=== PATIENT | male | born 1960 | race Caucasian/White ===

== ENCOUNTER 2019-02-20 08:09 | Outpatient (CLI) | payer MEDICARE ==
--- NOTE | 2019-02-20 09:12 | SJPRAD ---
FHAND 3 VIEWS ROUTINE LT History: [Arthritis] Comparison: None. Findings: Severe degenerative changes at the thumb carpometacarpal joint with large erosions and oste ophyte formation. 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 No acute fracture or malalignment. Impression: Severe degenerative changes of the thumb carpometacarpal joint.
--- NOTE | 2019-02-20 09:13 | SJPRAD ---
FHAND 3 VIEWS ROUTINE RT History: [Arthritis] Comparison: None. Findings: Advanced degenerative changes of the third metacarpal phalangeal joint with narrowing and o steophyte formation. Old fracture of the fifth metacarpal. Mild degenerative changes of the thumb carpometacarpal joint. 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 Impression: Degenerative changes and chronic findings. No evidence for inflammatory arthropathy.
[2019-02-20 16:19] LABS: #Basophils 0.1 thou/uL (0.0-0.2); #Eosinphils 0.4 thou/uL (0.0-0.7); #Lymphocytes 2.8 thou/uL (1.20-3.40); #Monocytes 0.7 thou/uL (0.11-0.59); #Neutrophils 4.1 thou/uL (1.40-6.50); %Basophils 1.3 % (0.0-1.0); %Lymphocytes 34.8 % (21.0-51.0); %Monocytes 8.1 % (0.0-10.0); %Neutrophils 50.8 % (42.0-75.0); Hemoglobin 16.1 g/dL (14.0-18.0); Mean Corpuscular HGB CONC 32.4 g/dL (32.0-36.0); Mean Corpuscular Hemoglobin 30.2 pg (27.0-31.0); Mean Corpuscular Volume 93.1 fL (78.0-98.0); Mean Platelet Volume 6.7 fL (7.4-10.4); Platelet Count 425 thou/uL (130-400); RBC Distribution Width 12.6 % (11.5-14.5); Red Blood Cell (RBC) Count 5.35 mill/uL (4.70-6.10); White Blood Cell (WBC) Count 8.1 thou/uL (4.8-10.8)
[2019-02-20 17:31] LABS: ALT (SGPT) 28 U/L (8-55); AST (SGOT) 25 U/L (5-34); Albumin 4.3 g/dL (3.5-5.0); Alkaline Phosphatase 80 U/L (40-150); Anion Gap 13 mmol/L (10-20); BUN (Urea Nitrogen) 12 mg/dL (8.4-25.7); Bilirubin, Total 0.5 mg/dL (0.2-1.2); Calc. Creatinine Clearance 0 mL/min (70-130); Calcium 10.5 mg/dL (7.8-10.44); Carbon Dioxide 30 mmol/L (22-29); Cardiac Risk 2.2 (Less than 4.5); Chloride 103 mmol/L (98-107); Cholesterol 205 mg/dl (< 200 Desired); Estimated GFR-MDRD 80; Globulin 3.3 g/dL (2.4-3.5); Glucose 109 mg/dL (70-105); HDL Cholesterol 92 mg/dL (>60 Neg Risk); LDL Cholesterol, Calculated 104 mg/dL; Potassium 4.6 mmol/L (3.5-5.1); Protein, Total 7.6 g/dL (6.0-8.3); Sodium 141 mmol/L (136-145); Triglycerides 44 mg/dL (Less than 150); Uric Acid 6.8 mg/dL (3.5-7.2)
[2019-02-20 17:44] LABS: Thyroid Stimulating Hormone 0.9936 uIU/mL (0.35-4.94); Vitamin D, 25 Hydroxy 26.9 ng/ml (> 30.0)
[2019-02-22 15:36] LABS: ANA Symphony (Qualitative) Negative (Negative); ANA Symphony (Quantitative) 0.1 Ratio (< 0.7 Negative); CCP IgG Antibody 1.2 EliAU/mL (<7 Negative); EliA RAS New Method **** NEW METHOD ****; Rheumatoid Factor IgA Antibody 3.9 IU/mL (<14 Negative); Rheumatoid Factor IgM Antibody 1.6 IU/mL (<3.5 Negative); dsDNA IgG Antibody 5.8 IU/mL (<10 Negative)
== END 2019-02-20 08:10 | disposition home or self-care (01) ==
LOC: MWLC RAD 08:09
PROVIDERS: ATTEND Internal Medicine Geriatric Medicine
DX: M19.041 Primary osteoarthritis, right hand (principal); M19.042 Primary osteoarthritis, left hand; M18.12 Unilateral primary osteoarthritis of first carpometacarpal joint, left hand
CPT/HCPCS: 80053; 80061; 82306; 82607; 83520; 84443; 84550; 85025; 86038; 86200; 86225

== ENCOUNTER 2022-11-26 19:17 | Inpatient (IN) | payer MEDICARE ==
[2022-11-26] MEDS ORDERED: Aspirin Chewable 81 MG TAB ONE (19:52)
[2022-11-26] MEDS ORDERED: Nitroglycerin 0.4 MG TAB 1 EACH ONE (19:52)
[2022-11-26] MEDS ORDERED: Ondansetron ODT 4 MG TAB ONE (19:52)
[2022-11-26] MEDS ORDERED: Mag-Al 1200 mg/1200 mg/30 ML UDCUP ONE (19:52)
[2022-11-26 20:35] LABS: #Basophils 0.1 thou/uL (0.0-0.2); #Eosinphils 0.3 thou/uL (0.0-0.7); #Lymphocytes 3.2 thou/uL (1.20-3.40); #Monocytes 0.8 thou/uL (0.11-0.59); #Neutrophils 5.6 thou/uL (1.40-6.50); %Eosinophils 2.6 % (0.0-10.0); %Monocytes 8.4 % (0.0-10.0); Hemoglobin 16.4 g/dL (14.0-18.0); Mean Corpuscular HGB CONC 33.2 g/dL (32.0-36.0); Mean Corpuscular Hemoglobin 30.8 pg (27.0-31.0); Mean Platelet Volume 6.4 fL (7.4-10.4); Platelet Count 355 10x3/uL (130-400); RBC Distribution Width 12.6 % (11.5-14.5); Red Blood Cell (RBC) Count 5.31 mill/uL (4.70-6.10); White Blood Cell (WBC) Count 9.9 10x3/uL (4.8-10.8)
[2022-11-26 21:02] LABS: ALT (SGPT) 35 U/L (8-55); AST (SGOT) 39 U/L (5-34); Albumin 4.7 g/dL (3.5-5.0); Alkaline Phosphatase 97 U/L (40-110); Anion Gap 15 mmol/L (10-20); BUN (Urea Nitrogen) 9 mg/dL (8.4-25.7); Bilirubin, Total 0.4 mg/dL (0.2-1.2); Calc. Creatinine Clearance 0 mL/min (70-130); Calcium 9.7 mg/dL (7.8-10.44); Carbon Dioxide 26 mmol/L (22-29); Chloride 102 mmol/L (98-107); Estimated GFR 101; Globulin 3.8 g/dL (2.4-3.5); Glucose 88 mg/dL (70-105); Lipase 33 U/L (8-78); Potassium 3.5 mmol/L (3.5-5.1); Protein, Total 8.5 g/dL (6.0-8.3); Sodium 139 mmol/L (136-145)
[2022-11-26 21:43] LABS: Acetaminophen Less than 10.0 mcg/mL (10.0-30.0); Alcohol 251 mg/dL (Less than 10); Salicylate Less than 8.0 mg/dL (15.0-30.0)
[2022-11-26 22:13] LABS: Amphetamine Not Detected (NotDetected); Barbiturates Screen Not Detected (NotDetected); Benzodiazepine Screen Not Detected (NotDetected); Cocaine Metabolite Screen Not Detected (NotDetected); Methadone Not Detected (NotDetected); Methamphetamine Not Detected (NotDetected); Opiate Screen Not Detected (NotDetected); Oxycodone Screen Not Detected (NotDetected); Phencyclidine (PCP) Not Detected (NotDetected); THC/Cannabinoid Screen Detected (NotDetected); Tricyclic Screen Not Detected (NotDetected)
[2022-11-26] MEDS ORDERED: Nitroglycerin 0.4 MG TAB (25 Tab Bottle) SL PRN (23:31)
[2022-11-26] MEDS ORDERED: Ondansetron ODT 4 MG TAB PO PRN (23:31)
[2022-11-26] MEDS ORDERED: Acetaminophen 325 MG TAB PO PRN (23:31)
[2022-11-26] MEDS ORDERED: Lorazepam 2 MG/ML VIAL IM PRN (23:31)
[2022-11-26] MEDS ORDERED: Lorazepam 1 MG TAB PO PRN (23:31)
[2022-11-26] MEDS ORDERED: Electrolyte Replacement Protocol 1 EACH FS SCH (23:45)
[2022-11-26 23:46] LABS: Troponin I Less than 0.010 ng/mL (< 0.028)
[2022-11-26] MEDS ORDERED: Multivit, Therapeutic 1 TAB PO SCH (23:59)
[2022-11-26] MEDS ORDERED: Nicotine 21 MG PATCH TD SCH (23:59)
[2022-11-26] MEDS ORDERED: Folic Acid 1 MG TAB PO SCH (23:59)
[2022-11-27 00:24] LABS: Hemoglobin A1c 5.3 % (4.0-6.0)
[2022-11-27] MEDS ORDERED: Folic Acid 1 MG TAB ONE ×2 (00:24→09:54)
[2022-11-27 00:25] LABS: Phosphorus 3.5 mg/dL (2.3-4.7)
[2022-11-27] MEDS ORDERED: Lorazepam 1 MG TAB ONE (00:26)
[2022-11-27] MEDS: Lorazepam 1 MG TAB PO SCH ×5 (00:52→23:48)
[2022-11-27] MEDS: Thiamine HCl 200 MG/2 ML VIAL SLOW IVP SCH ×2 (00:52→23:48)
[2022-11-27 01:02] LABS: HBCM Index 0.41 S/CO (0-0.79); HBSAg Index 0.28 S/CO (0-0.99); HIV (1/2) Antibody/Antigen Non-Reactive (NonReactive); HIV 1/2 INDEX 0.09 S/CO (<1.00); Hep A IgM AB Non-Reactive (NonReactive); Hep A IgM S/CO 0.18 S/CO (0-0.79); Hep B Surf Ag Non-Reactive S/CO (NonReactive); Hepatitis B Core IgM Abs Non-Reactive (NonReactive); Thyroid Stimulating Hormone 0.9822 uIU/mL (0.35-4.94)
[2022-11-27 01:03] LABS: Hep C IgG Ab Reflex HepC Qnt (NonReactive); Hep C Index 14.76 S/CO (0-0.79)
[2022-11-27] MEDS: Lactated Ringer's 1,000 ML IV SCH ×2 (01:16→16:26)
[2022-11-27 01:18] LABS: INR-International Normal Ratio 0.9; PTT 29.5 sec (22.9-36.1); Prothrombin Time 12.9 sec (12.0-14.7)
[2022-11-27 02:52] LABS: Troponin I Less than 0.010 ng/mL (< 0.028)
[2022-11-27 05:38] LABS: #Basophils 0.1 thou/uL (0.0-0.2); #Eosinphils 0.3 thou/uL (0.0-0.7); #Lymphocytes 2.7 thou/uL (1.20-3.40); #Monocytes 0.5 thou/uL (0.11-0.59); #Neutrophils 3.9 thou/uL (1.40-6.50); %Basophils 1.4 % (0.0-1.0); %Eosinophils 3.9 % (0.0-10.0); %Lymphocytes 36.4 % (21.0-51.0); %Monocytes 6.7 % (0.0-10.0); %Neutrophils 51.7 % (42.0-75.0); Hemoglobin 15.9 g/dL (14.0-18.0); Mean Corpuscular HGB CONC 33.5 g/dL (32.0-36.0); Mean Corpuscular Volume 92.4 fl (78.0-98.0); Mean Platelet Volume 6.5 fL (7.4-10.4); Platelet Count 316 10x3/uL (130-400); RBC Distribution Width 12.7 % (11.5-14.5); Red Blood Cell (RBC) Count 5.13 mill/uL (4.70-6.10); White Blood Cell (WBC) Count 7.5 10x3/uL (4.8-10.8)
[2022-11-27 06:00] LABS: Potassium 3.8 mmol/L (3.5-5.1); Sodium 140 mmol/L (136-145)
[2022-11-27 06:01] LABS: ALT (SGPT) 36 U/L (8-55); AST (SGOT) 40 U/L (5-34); Albumin 3.8 g/dL (3.5-5.0); Alkaline Phosphatase 76 U/L (40-110); Anion Gap 13 mmol/L (10-20); BUN (Urea Nitrogen) 9 mg/dL (8.4-25.7); Bilirubin, Total 0.3 mg/dL (0.2-1.2); Calc. Creatinine Clearance 0 mL/min (70-130); Calcium 9.1 mg/dL (7.8-10.44); Carbon Dioxide 24 mmol/L (22-29); Cardiac Risk 1.9 (Less than 4.5); Chloride 107 mmol/L (98-107); Cholesterol 160 mg/dl (< 200 Desired); Estimated GFR 103; Globulin 3.1 g/dL (2.4-3.5); Glucose 92 mg/dL (70-105); HDL Cholesterol 85 mg/dL (>60 Neg Risk); LDL Cholesterol, Calculated 59 mg/dL; Protein, Total 6.9 g/dL (6.0-8.3); Triglycerides 78 mg/dL (Less than 150)
[2022-11-27] MEDS ORDERED: Magnesium 2 GM/50 ML(in water) 2 GM in Premix Bag 1 BAG IVPB SCH (08:00)
[2022-11-27] MEDS ORDERED: Magnesium 2 GM/50 ML BAG (IN WATER) ONE (08:08)
[2022-11-27 08:59] LABS: SARS-CoV-2 NAA Rapid Test Not Detected (NotDetected)
[2022-11-27] MEDS ORDERED: Aspirin Chewable 81 MG TAB ONE (09:54)
[2022-11-27] MEDS: Aspirin Chewable 81 MG TAB PO SCH (09:59)
[2022-11-27] MEDS: Multivit, Therapeutic 1 TAB PO SCH (09:59)
[2022-11-27] MEDS: Folic Acid 1 MG TAB PO SCH (09:59)
[2022-11-27] MEDS: Losartan 25 MG TAB PO SCH (10:02)
[2022-11-27 11:54] LABS: Syphilis Antibody Nonreactive (Nonreactive); Syphilis Antibody Index 0.05 S/CO (<1.00 Non-Reactive)
[2022-11-27] MEDS ORDERED: ADENOSINE 60 MG/20 ML VIAL ONE (13:49)
[2022-11-27 14:55] VITALS: BMI 21.4
[2022-11-27] MEDS: Varenicline Tartrate 0.5 MG TAB PO SCH (20:19)
[2022-11-27] MEDS ORDERED: Lorazepam 1 MG TAB PO PRN (23:33)
[2022-11-28] MEDS: Lorazepam 1 MG TAB PO SCH ×3 (05:43→17:44)
[2022-11-28 06:37] LABS: ALT (SGPT) 32 U/L (8-55); AST (SGOT) 32 U/L (5-34); Albumin 3.7 g/dL (3.5-5.0); Alkaline Phosphatase 83 U/L (40-110); Anion Gap 11 mmol/L (10-20); BUN (Urea Nitrogen) 13 mg/dL (8.4-25.7); Bilirubin, Total 0.9 mg/dL (0.2-1.2); Calc. Creatinine Clearance 105 mL/min (70-130); Calcium 9.2 mg/dL (7.8-10.44); Carbon Dioxide 25 mmol/L (22-29); Chloride 105 mmol/L (98-107); Estimated GFR 101; Glucose 103 mg/dL (70-105); Potassium 3.7 mmol/L (3.5-5.1); Protein, Total 6.7 g/dL (6.0-8.3); Sodium 137 mmol/L (136-145)
[2022-11-28] MEDS: Multivit, Therapeutic 1 TAB PO SCH (09:00)
[2022-11-28] MEDS: Losartan 25 MG TAB PO SCH (09:00)
[2022-11-28] MEDS ORDERED: FLU VACC QS2022-23(6MOS UP)/PF 60 MCG/0.5 ML SYRINGE IM ONE (09:00)
[2022-11-28] MEDS: Aspirin Chewable 81 MG TAB PO SCH (09:00)
[2022-11-28] MEDS: Folic Acid 1 MG TAB PO SCH (09:00)
[2022-11-28] MEDS ORDERED: hydrALAZINE 20 MG/ML VIAL SLOW IVP PRN (10:30)
[2022-11-28] MEDS: Varenicline Tartrate 0.5 MG TAB PO SCH (20:48)
[2022-11-28] MEDS: Thiamine HCl 200 MG/2 ML VIAL SLOW IVP SCH (23:16)
[2022-11-28] MEDS: Lorazepam 0.5 MG TAB PO SCH (23:17)
[2022-11-28] MEDS ORDERED: Lorazepam 1 MG TAB PO PRN (23:33)
[2022-11-29 05:39] LABS: ALT (SGPT) 34 U/L (8-55); AST (SGOT) 32 U/L (5-34); Albumin 3.7 g/dL (3.5-5.0); Alkaline Phosphatase 78 U/L (40-110); Anion Gap 11 mmol/L (10-20); BUN (Urea Nitrogen) 11 mg/dL (8.4-25.7); Bilirubin, Total 0.9 mg/dL (0.2-1.2); Calc. Creatinine Clearance 109 mL/min (70-130); Carbon Dioxide 25 mmol/L (22-29); Chloride 105 mmol/L (98-107); Estimated GFR 102; Glucose 112 mg/dL (70-105); Potassium 3.4 mmol/L (3.5-5.1); Protein, Total 6.7 g/dL (6.0-8.3); Sodium 138 mmol/L (136-145)
[2022-11-29] MEDS: Lorazepam 0.5 MG TAB PO SCH ×3 (06:08→18:10)
[2022-11-29] MEDS: Aspirin Chewable 81 MG TAB PO SCH (08:25)
[2022-11-29] MEDS: Losartan 25 MG TAB PO SCH (08:25)
[2022-11-29] MEDS: Multivit, Therapeutic 1 TAB PO SCH (08:25)
[2022-11-29] MEDS: Folic Acid 1 MG TAB PO SCH (08:26)
[2022-11-29] MEDS ORDERED: Potassium Chloride 20 MEQ TAB PO SCH (08:45)
[2022-11-29] MEDS ORDERED: Communication Order-Pharmacy FS SCH (08:45)
[2022-11-29] MEDS: Amlodipine 5 MG TAB PO SCH (10:36)
[2022-11-29] MEDS: Famotidine 20 MG TAB PO SCH ×2 (11:47→18:09)
[2022-11-29] MEDS: predniSONE 20 MG TAB PO SCH ×2 (11:47→18:10)
[2022-11-29 14:13] LABS: HCV RNA, log10 5.739 (.); Hep C PCR-Quant 548000 IU/mL (.)
[2022-11-29] MEDS ORDERED: Thiamine 100 MG TAB PO SCH (21:00)
[2022-11-29] MEDS: Varenicline Tartrate 0.5 MG TAB PO SCH (21:00)
[2022-11-29] MEDS ORDERED: Lorazepam 0.5 MG TAB PO PRN (23:33)
[2022-11-30] MEDS: predniSONE 20 MG TAB PO SCH ×2 (00:11→06:10)
[2022-11-30] MEDS: Famotidine 20 MG TAB PO SCH ×2 (00:11→06:10)
[2022-11-30 05:20] LABS: ALT (SGPT) 40 U/L (8-55); AST (SGOT) 39 U/L (5-34); Alkaline Phosphatase 84 U/L (40-110); Anion Gap 9 mmol/L (10-20); BUN (Urea Nitrogen) 13 mg/dL (8.4-25.7); Bilirubin, Total 0.7 mg/dL (0.2-1.2); Calc. Creatinine Clearance 109 mL/min (70-130); Calcium 9.7 mg/dL (7.8-10.44); Carbon Dioxide 26 mmol/L (22-29); Chloride 105 mmol/L (98-107); Estimated GFR 102; Globulin 3.1 g/dL (2.4-3.5); Glucose 152 mg/dL (70-105); Potassium 3.9 mmol/L (3.5-5.1); Protein, Total 7.1 g/dL (6.0-8.3); Sodium 136 mmol/L (136-145)
[2022-11-30] MEDS ORDERED: Sodium Chloride 0.9% 1,000 ML IV SCH (06:00)
[2022-11-30] MEDS: Aspirin Chewable 81 MG TAB PO SCH (06:10)
[2022-11-30] MEDS: Losartan 25 MG TAB PO SCH (06:11)
[2022-11-30] MEDS: Amlodipine 5 MG TAB PO SCH (06:11)
[2022-11-30] MEDS: Multivit, Therapeutic 1 TAB PO SCH (06:11)
[2022-11-30] MEDS: Folic Acid 1 MG TAB PO SCH (06:11)
[2022-11-30] MEDS ORDERED: Heparin 10,000 UNITS/ 10 ML VIAL ONE (07:35)
[2022-11-30] MEDS ORDERED: Lidocaine 1% (PF) 30 ML VIAL ONE (07:35)
[2022-11-30] MEDS ORDERED: Carvedilol 3.125 MG TAB PO SCH ×3 (08:00→17:00)
[2022-11-30] MEDS ORDERED: FENTANYL 50 MCG/ML 1 ML VIAL ONE (08:24)
[2022-11-30] MEDS ORDERED: Midazolam HCl 2 mg/2 ml Vial ONE (08:24)
[2022-11-30] MEDS ORDERED: Varenicline Tartrate 0.5 MG TAB PO SCH (09:00)
[2022-11-30] MEDS ORDERED: Metoprolol Tartrate 5 MG/5 ML VIAL ONE (09:22)
[2022-11-30] MEDS ORDERED: Nitroglycerin 0.4 MG TAB (25 Tab Bottle) SL PRN (09:40)
[2022-11-30] MEDS ORDERED: Sodium Chloride 0.9% 200 ML IV PRN (09:40)
[2022-11-30] MEDS ORDERED: Famotidine 20 MG TAB PO SCH (09:45)
[2022-11-30] MEDS ORDERED: Nitroglycerin 2% Ointment 1 INCH/1 GM Packet TOP SCH (10:15)
[2022-11-30 11:42] VITALS: BP 174/94; TEMP 97.7
[2022-11-30] MEDS ORDERED: predniSONE 20 MG TAB PO SCH (14:00)
[2022-11-30] MEDS ORDERED: Atorvastatin Calcium 20 MG TAB PO SCH (21:00)
== END 2022-11-30 15:45 | disposition home or self-care (01) | DRG 392 ==
LOC: ERS 19:17 → ERHOLD 22:28 → 2SW 11-27 11:01 → OBSVTOIN 11-27 17:30
PROVIDERS: ADMIT Family Medicine; ATTEND Student in an Organized Health Care Education/Training Program
PROC: HZ2ZZZZ Detoxification Services for Substance Abuse Treatment (ICD-10-PCS; 2022-11-27)
PROC: 4A023N7 Measurement of Cardiac Sampling and Pressure, Left Heart, Percutaneous Approach (ICD-10-PCS; principal; 2022-11-30)
PROC: B2151ZZ Fluoroscopy of Left Heart using Low Osmolar Contrast (ICD-10-PCS; 2022-11-30)
PROC: B2111ZZ Fluoroscopy of Multiple Coronary Arteries using Low Osmolar Contrast (ICD-10-PCS; 2022-11-30)
DX: K29.70 Gastritis, unspecified, without bleeding (principal); Z20.822 Contact with and (suspected) exposure to COVID-19; Z28.21 Immunization not carried out because of patient refusal; F17.210 Nicotine dependence, cigarettes, uncomplicated; F12.10 Cannabis abuse, uncomplicated; B18.2 Chronic viral hepatitis C; I10 Essential (primary) hypertension; I25.10 Atherosclerotic heart disease of native coronary artery without angina pectoris; Y90.8 Blood alcohol level of 240 mg/100 ml or more; K21.9 Gastro-esophageal reflux disease without esophagitis; F10.229 Alcohol dependence with intoxication, unspecified; E87.6 Hypokalemia; Z88.8 Allergy status to other drugs, medicaments and biological substances; Z98.890 Other specified postprocedural states; Z91.041 Radiographic dye allergy status
CPT/HCPCS: 36415; 71045; 78452; 80053; 80061; 80074; 80306; 80307; 83036; 83690; 83735; 84100; 84443; 84484; 85025; 85610; 85730; 86780; 87389; 87522; 93005; 93017; 93306; 93458; 96372; 96374; 99152; A9500; C1769; C1894; G0378; J0153; J1644; J1650; J2001; J2250; J3010; J3411; J3475; J7050; J7120; J7512; Q0162; U0002